=== PATIENT | male | born 1980 | race American Indian/Alaskan Native ===

== ENCOUNTER 2019-09-21 06:50 | Emergency (ER) | payer SELFPAY ==
[2019-09-21] MEDS ORDERED: KETOROLAC 60 MG/2 ML INJ IM ONE (07:58)
[2019-09-21] MEDS ORDERED: dexAMETHasone 20 MG/5 ML VIAL IM ONE (07:58)
[2019-09-21] MEDS ORDERED: GABAPENTIN 300 MG CAP PO ONE (07:59)
--- NOTE | 2019-09-21 08:05 | Emergency Department Report ---
ED Extremity Problem HPI - General Chief complaint: Pain General Stated complaint: RIGHT LEG PAIN Time Seen by Provider: 09/21/19 07:36 Source: patient Mode of arrival: Wheelchair Limitations: No Limitations - History of Present Illness Initial comments: 39-year-old male with no significant past medical history presents to the ER today complaining of pain that starts in his right hip and radiate down to his right toes. Patient states that he has been having right hip pain off and on for couple months, and intermittently the pain will radiate down into his right hip but he states that he has just been dealing with it but in the past couple days the pain has become significantly worse now radiating all the way down to his toes. He describes as a sharp pain. Patient states that the pain seems to be worse with any movement. He states that he tried Motrin without much relief. He denies any associated saddle anesthesia, numbness, tingling, leg weakness, bowel or bladder incontinence, UTI symptoms, fever chills or abdominal pain. He denies any past or recent injury. 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 He reports no other symptoms at this time. MD Complaint: extremity pain, joint paint -: Gradual Location: right, lower extremity - Related Data Previous Rx's Medication Instructions Recorded Last Taken Type Gabapentin 300 mg PO BID #30 cap 09/21/19 Unknown Rx methylPREDNISolone [Medrol 4MG 4 mg PO DAILY #1 tab.ds.pk 09/21/19 Unknown Rx DOSEPAK (21 tabs)] traMADoL [Ultram] 50 mg PO Q6HR PRN #15 tablet 09/21/19 Unknown Rx Allergies Allergy/AdvReac Type Severity Reaction Status Date / Time No Known Allergies Allergy Unverified 09/21/19 06:52 ED Review of Systems ROS: Stated complaint: RIGHT LEG PAIN Other details as noted in HPI Constitutional: denies: chills, diaphoresis, fever, weakness Cardiovascular: denies: chest pain, palpitations, dyspnea on exertion, edema, syncope, paroxysmal nocturnal dyspnea Gastrointestinal: denies: abdominal pain, nausea, vomiting, diarrhea Genitourinary: denies: urgency, dysuria, frequency Musculoskeletal: back pain, arthralgia Neurological: denies: headache, weakness, confusion, abnormal gait Psychiatric: denies: anxiety, depression Hematological/Lymphatic: denies: easy bleeding, swollen glands ED Past Medical Hx - Past Medical History Previous Medical History?: No - Surgical History Past Surgical History?: No - Social History Smoking Status: Current Every Day Smoker Substance Use Type: Alcohol, Marijuana - Medications Home Medications: Home Medications Medication Instructions Recorded Confirmed Last Taken Type Gabapentin 300 mg PO BID #30 cap 09/21/19 Unknown Rx methylPREDNISolone [Medrol 4MG 4 mg PO DAILY #1 tab.ds.pk 09/21/19 Unknown Rx DOSEPAK (21 tabs)] traMADoL [Ultram] 50 mg PO Q6HR PRN #15 tablet 09/21/19 Unknown Rx ED Physical Exam - General Limitations: No Limitations General appearance: alert, in distress, other (Patient appears uncomfortable, he appears to be in pain.) - Head Head exam: Present: atraumatic, normocephalic - Eye Eye exam: Present: normal appearance, PERRL, EOMI Pupils: Present: normal accommodation - ENT ENT exam: Present: normal exam, normal orophraynx, mucous membranes moist - Respiratory Respiratory exam: Present: normal lung sounds bilaterally. Absent: respiratory distress - Cardiovascular Cardiovascular Exam: Present: regular rate - GI/Abdominal GI/Abdominal exam: Present: soft. Absent: distended, tenderness - Extremities Exam Extremities exam: Present: other (No apparent ttp right hip but ROM of hip severely reduced due to pain. No deformity,erythema or swelling noted. ). Absent: tenderness, pedal edema, calf tenderness - Back Exam Back exam: Present: normal inspection, other (No vert ttp along lumbar spine. No paraspinal muscle ttp along lumbar spine. No ttp to right buttock. SLR right l eg 40 degrees). Absent: muscle spasm, paraspinal tenderness, vertebral tenderness - Expanded Back Exam Expanded Back exam: Absent: saddle anesthesia Back exam: Positive Straight Leg Raise: Right - Neurological Exam Neurological exam: Present: alert, oriented X3, CN II-XII intact. Absent: motor sensory deficit - Skin Skin exam: Present: intact ED Medical Decision Making - Radiology Data Radiology results: report reviewed Patient: KEKE STOKES MR#: [id number] : 1980 Acct:[id number] Age/Sex: 39 / M ADM Date: 09/21/19 Loc: ED Attending Dr: Ordering Physician: SARAH ZAPATA Date of Service: 09/21/19 Procedure(s): XR hip 2-3V RT Accession Number(s): [id number] cc: SARAH ZAPATA Fluoro Time In Minutes: LUMBOSACRAL SPINE, 3 VIEWS INDICATION: MAIN: sciatica; LOWER BACK PAIN X SEVERAL WEEKS; RT LEG PAIN FOR 2 DAYS. COMPARISON: None. IMPRESSION: Normal alignment. No significant discogenic DJD or facet arthropathy. No acute osseous or soft tissue abnormality. RIGHT HIP 2 VIEWS INDICATION: MAIN: sciatica; LOWER BACK PAIN X SEVERAL WEEKS; RT LEG PAIN FOR 2 DAYS. COMPARISON: None. IMPRESSION: No acute osseous or soft tissue abnormality. No significant DJD. Signer Name: Maik Vinson Jr, MD Signed: 09/21/2019 9:03 AM Workstation Name: [id number] Transcribed By: URMILA Dictated By: MAIK VINSON JR, MD Electronically A uthenticated By: MAIK VINSON JR, MD Signed Date/Time: 09/21/19902 DD/ 2 TD/TT: - Medical Decision Making 39-year-old male presents to the ER today complaining of pain that seem to start in his right hip and radiate down his leg. He reports no numbness, tingling, leg weakness, bowel or bladder incontinence, fever or chills. Patient currently resting comfortably, he is alert, talkative and interactive and in no distress. Patient neurologically intact. He is alert and well-appearing. Patient has history, physical exam and diagnostic testing does not suggest the presence of acute spinal epidural abscess, acute spinal epidural bleed, cauda equina, abdominal aortic syndrome, aortic dissection or other process requiring further testing, treatment or consultation in the emergency department. His vital signs are stable. Patient's condition is stable and he is appropriate for discharge. Discussed x-ray results, suspected diagnosis and treatment plan with patient. Recommend follow-up with his primary care doctor and product design specialist for further testing and evaluation especially if his symptoms continues. Critical care attestation.: If time is entered above; I have spent that time in minutes in the direct care of this critically ill patient, excluding procedure time. ED Disposition Clinical Impression: Lumbar radicular pain, Hip pain Disposition: TO HOME OR SELFCARE Is pt being admited?: No Does the pt Need Aspirin: No Condition: Stable Instructions: Lumbar Radiculopathy (ED), Arthralgia (ED) Additional Instructions: Recommend you follow up with [employer] Examiner or PCP for further evaluation if you pain continues. For possible MRI. Take medications as prescribed. Return to ED if anything changes or worsens. Prescriptions: Gabapentin 300 mg PO BID #30 cap methylPREDNISolone [Medrol 4MG DOSEPAK (21 tabs)] 4 mg PO DAILY #1 tab.ds.pk traMADoL [Ultram] 50 mg PO Q6HR PRN #15 tablet PRN Reason: Pain Referrals: FACUNDO HAMMONDS MD [Staff Physician] - 3-5 Days Time of Disposition: 09:31
--- NOTE | 2019-09-21 09:08 | XRay Report ---
LUMBOSACRAL SPINE, 3 VIEWS INDICATION: MAIN: sciatica; LOWER BACK PAIN X SEVERAL WEEKS; RT LEG PAIN FOR 2 DAYS. COMPARISON: None. IMPRESSION: Normal alignment. No significant discogenic DJD or facet arthropathy. No acute osseous or soft tissue abnormality. RIGHT HIP 2 VIEWS INDICATION: MAIN: sciatica; LOWER BACK PAIN X SEVERAL WEEKS; RT LEG PAIN FOR 2 DAYS. COMPARISON: None. IMPRESSION: No acute osseous or soft tissue abnormality. No significant DJD. Signer Name: Maik Vinson Jr, MD Signed: 09/21/2019 9:03 AM Workstation Name: [id number]
[2019-09-21 09:59] VITALS: BP 125/99
== END 2019-09-21 10:46 | disposition home or self-care (01) ==
LOC: ED 06:50
DX: M54.16 Radiculopathy, lumbar region (principal); M25.551 Pain in right hip; F17.200 Nicotine dependence, unspecified, uncomplicated; F12.90 Cannabis use, unspecified, uncomplicated; Z79.899 Other long term (current) drug therapy
CPT/HCPCS: 72100; 73502; 96372; 99283; J1100; J1885